=== PATIENT | female | born 1975 | race Caucasian/White ===

== ENCOUNTER 2016-12-27 06:36 | Day surgery (SDC) | payer OTHER ==
[2016-12-21 09:40] VITALS: BMI 25.8
[2016-12-27] MEDS ORDERED: Bupivacaine HCl 0.25% PF (10 ml) Inj ONE ×2 (07:44)
[2016-12-27] MEDS ORDERED: Vasopressin 20 Units/ml Inj ONE (07:45)
[2016-12-27] MEDS ORDERED: ceFAZolin IV 2 gm in Dextrose 1 GM/50 ML BAG IVPB ONE (07:45)
[2016-12-27] MEDS ORDERED: Sodium Chloride 0.9% 0 ML IV ONE (07:45)
[2016-12-27] MEDS ORDERED: Bupivacaine-Epi 0.25%-1:200,000 PF Inj ONE (07:48)
[2016-12-27] MEDS ORDERED: Propofol 10 mg/ml Inj (20 ML) ONE (07:56)
[2016-12-27] MEDS ORDERED: Rocuronium 10 mg/ml (5 ml) ONE (07:57)
[2016-12-27] MEDS ORDERED: Midazolam 2 MG/2 ML VIAL ONE (08:05)
[2016-12-27] MEDS ORDERED: Phenylephrine 10 mg/ml Inj ONE (08:24)
[2016-12-27] MEDS ORDERED: Lactated Ringer's 1,000 ML IV ONE ×4 (08:38→11:00)
[2016-12-27] MEDS ORDERED: Methylene Blue 10 mg/mL(10ml) IV ONE (09:17)
[2016-12-27] MEDS ORDERED: Neostigmine Methylsulfate 3mg/3ml Syringe IV ONE (09:36)
--- NOTE | 2016-12-27 12:26 | PCM.SURG1 ---
Surgeon's Initial Post Op Note - Surgeon's Notes Surgeon: mitchell gill md Last Sawyer: Luis Carlos Cabrales MD, PGY1 Type of Anesthesia: General Endo, Local Pre-Operative Diagnosis: Fibroid uterus. Abnormal uterine bleeding. Chronic anemia. Chronic pelvic pain Operative Findings: extensive intrapelvic adhesions bowel adhesions to posterior uterine wall. deep tissue endometriosis on left uterosacroligament. enlarged uterus, adenomyosis, ill defined myomas and typical myomas. normal bladder anatomy as per cystosopcy at the end of the procedure Post-Operative Diagnosis: Fibroid uterus. Abnormal uterine bleeding. Chronic anemia. Chronic pelvic pain. adenomysis. severe bowel adhesions. deep tissue endometriosis Operation Performed: robotic myomectomy >5. robotic excision of adenomyosis. enterolysis. cystoscopy Specimen/Specimens Removed: myomas. adenomyosis Estimated Blood Loss: EBL {In ML}: 20 Blood Products Given: N/A Drains Used: No Drains Post-Op Condition: Good Date of Surgery/Procedure: 12/27/16 Time of Surgery/Procedure: 12:26
[2016-12-27] MEDS ORDERED: Trimethobenzamide 200 mg/2 mL Inj IM PRN (12:28)
[2016-12-27] MEDS ORDERED: ceFAZolin IV 1 gm in Dextrose 1 GM/50 ML BAG IVPB SCH (12:30)
--- NOTE | 2016-12-27 12:35 | PCM.OP ---
Operative Report - Operative Report Date of Surgery/Procedure: 12/27/16 Time of Surgery/Procedure: 12:34 Surgeon: mitchell gill md Anesthesia/Sedation: Gen. anesthesia per ET tube Pre-Operative Diagnosis: Fibroid uterus. Endometriosis. Abnormal uterine bleeding. Chronic pelvic pain. Chronic anemia Post-Operative Diagnosis: Fibroid uterus. Endometriosis. Adenomyosis. Abnormal uterine bleeding. Chronic pelvic pain. Chronic anemia Indication for Surgery: This is a 41 years old female with chronic pelvic pain worsening abnormal uterine bleeding due to fibroid uterus who failed conservative management over several years. Operative Findings: Patient with bulky enlarged uterus consistent with fibroids as well as adenomyosis. Extensive intrapelvic adhesions involving multiple loops of bowel to the posterior uterine wall. Deep tissue endometriosis on the left uterosacral ligament. Uterus is severely enlarged with ill-defined myomas in typical adenomyosis appearance. Normal bladder anatomy as per cystoscopy again of the procedure. Procedure/Operation Description: Robotic-assisted myomectomy more than 5 myomas, . Robiotic excision of endometriosis as well as adenomyosis. Extensive anterolysis,. Diagnostic cystoscopy. . Detailed Operative Report. This is a 41 years old female with abnormal uterine bleeding, chronic pelvic pain, uterine fibroids. The patient completed an extensive preoperative workup, which included an ultrasound, as well as a Pap smear and chemistry and hematology studies. A decision was finally made to proceed with a robotic assisted myomectomy. A detailed description of this robotic procedure was given to the patient, all risks and benefits of the surgical modality was reviewed, printed material was also given to the patient regarding robotic surgery. The patient fully understood all the risks and benefits and elected to proceed with this proposed procedure. After proper consent was obtained from the patient was taken to the operating room, proper patient identification was completed. She was placed in dorsal lithotomy position; general anesthesia was induced without difficulty. Her legs were placed in adjustable Darin stirrups. Careful attention was placed not to over-flex or over-rotate the lower extremities at the hip or the knee joints. She was prepped and draped appropriately for robotic assisted hysterectomy. Montaño catheter was inserted under sterile conditions. A weighted speculum was placed in the vagina, anterior lip of cervix was grasped with a tenaculum, and a Revolve.-care uterine manipulator was inserted through the cervix and secured. A weighted speculum and tenaculum were removed from the patient's vagina and attention was turned to the patient's abdomen. Local anesthetic solutions of 0.25% Marcaine with epinephrine were utilized to infiltrate the skin prior to all abdominal skin incisions. A total of 15 mL of 0.25% Marcaine was utilized throughout the procedure. While tenting the abdominal wall, a Veres needle was inserted through the umbilicus and a pneumoperitoneum was obtained. Approximately 1 cm above the umbilicus in the midline, a 1 cm incision was made with a scalpel and a trocar and sleeve were introduced. A robotic camera was inserted and an initial survey of the patient's abdomen revealed a bulky enlarged fibroid uterus with possible adenomyosis with multiple myoma originating in anterior posterior and fundal region of the uterus. Patient, extensive intra-abdominal and intrapelvic adhesions were noted, involving multiple loops of bowel as well as the pelvic viscera. Lastly deep tissue endometriosis was noted in the posterior cul-de-sac specifically over the left uterosacral ligament. Both ovaries appeared normal with normal fallopian tubes, however extensive adhesions involving both fallopian tubes and ovaries as well as bowel and omentum. The patient was placed in Trendelenburg position ready for a da Glenn robotic system to be docked. 3 robotic ports were utilized for this procedure. The first robotic port was placed on the patient's right side approximately 5 cm above the right superior iliac crest where a small skin incision approximately 8 mm was made. The second robotic port was in the patient's left side approximately 5 cm superior to the left superior iliac crest. A small incision approximately 1 cm was made 9 cm lateral to the camera port and an assistant child care teacher port was inserted. All robotic ports were approximately 8 mm in size , the assistant child care teacher and the camera ports were 1 cm in size. For the assistant child care teacher and camera ports we utilized the Versa-step trocar system. All trocars were inserted under direct visualization. The placement of the trocars was all accomplished under careful and meticulous placement under direct visualization. Following the placement of all trocars, the da Glenn robotic system was docked in a parallel method without difficulty. The following instruments were utilized for this procedure: the PK sealing device, a monopolar lilian and finally a ProGrasp. Prior to the start of the myomectomy, both ureters and their courses were visualized, peristalsing without difficulty. Prior to initiation of the myomectomy, extensive lysis of adhesions as well as anterolysis was necessary in order to proceed with a myomectomy. Patient had extensive adhesions possibly from prior infection possibly PID in the past. This was a difficult adhesive disease throughout the pelvic cavity. In addition excision of deep tissue endometriosis was completed utilizing a monopolar lilian from the left uterosacral ligament. Ablation of scattered endometriosis was accomplished utilizing the monopolar lilian. The biopsy from the left uterosacral ligament was sent to pathology. Excellent hemostasis noted. Dilute pitrecin solution was used to inject the capsule of all myomas and incision to aid in hemostasis. a total of 40 unites diluted in saline was used to inject with a spinal needle. Multiple incisions over the anterior and posterior uterine wall as well over the uterine fundus were made and the myomas were enucleated using sharp and blunt dissection. A total of > 5 myomas were enucleated this fashion and placed in the posterior cul-de-sac for later extraction. The incisions were closed in an interrupted fashion using 2-0 and 3-0 sutures V lock with great hemostasis. The serosa was closed in baseball fashion with great hemostasis. This was an exceptionally difficult and challenging procedure due to the ill-defined myomas throughout the uterine wall , anterior posterior and fundal region. This was a case of adenomyosis as well as fibroids which made the dissection of the myomas exceptionally difficult. Wedge resection of adenomyosis was completed along with a myomectomy. The endometrial cavity was not entered. Extraction of the myomas which were placed in the posterior cul-de-sac was accomplished utilizing extraction via D assistant child care teacher port all specimen were extracted and sent to pathology labeled appropriately. The abdomen was throughout irrigated and cleared of all clots and debris. FloSeal as well as Intercede was applied to the incision sites. Excellent hemostasis was again noted. All robotic and laparoscopic instruments removed under direct visualization. The robotic arms were undocked, and a StudioNow robotic system was wheeled away from the patient's bedside. Both assistant child care teacher and camera ports were closed at the fascial layer utilizing a 2-0 Vicryl suture serial in interrupted fashion. Pneumoperitoneum was reduced and all skin incisions were closed utilizing 4-0 Monocryl in a subcutaneous fashion. Dermabond was applied to all incisions. Due to the complexity of this myomectomy, the distorted pelvic anatomy, a diagnostic cystoscopy was completed. The Montaño catheter was removed; the bladder was distended with approximately 350 cc of normal saline. A 30 cystoscope was introduced and a survey of the bladder anatomy was completed. The base, and the dome of the bladder appeared normal, both ureteral orifices appeared normal and were efluxing urine freely. The urethra appeared normal. A Montaño catheter was reinserted. Patient emerged from general anesthesia without difficulty, and was taken to recovery room in stable condition. Prior to incision the patient received antibiotics, prior to closure sponge lap and needle counts were correct x2. Estimated Blood Loss: 20 mL Blood Replaced: None Sponge/Instrument Count: Sponge lap and needle count were correct 2. Drains: None Complications: None Specimen: Myomas, adenomyosis, endometriosis. Discharge & Condition: Patient discharged home in stable condition postoperative day #1
[2016-12-27] MEDS: HYDROmorphone 0.5 mg/0.5 ml ISec IVP PRN ×3 (12:40→13:35)
[2016-12-27] MEDS ORDERED: HYDROmorphone 0.5 mg/0.5 ml ISec ONE (12:58)
[2016-12-27] MEDS ORDERED: Clindamycin 2% Vaginal Cream(40 gm) ONE (13:02)
[2016-12-27] MEDS ORDERED: Sodium Chloride 0.9% 1,000 ML IV ONE (13:42)
[2016-12-27] MEDS: Morphine 4 MG/ML VIAL IVP PRN ×2 (15:17→20:07)
[2016-12-27 16:30] VITALS: RESP 20
[2016-12-27] MEDS: ceFAZolin IV 1 gm in Dextrose 1 GM/50 ML BAG IVPB SCH (16:31)
[2016-12-27] MEDS: Sodium Chloride 0.9% 1,000 ML IV SCH (20:02)
[2016-12-28] MEDS: Morphine 4 MG/ML VIAL IVP PRN ×2 (00:17→04:08)
[2016-12-28] MEDS: ceFAZolin IV 1 gm in Dextrose 1 GM/50 ML BAG IVPB SCH ×2 (00:18→07:55)
[2016-12-28] MEDS: Sodium Chloride 0.9% 1,000 ML IV SCH (07:56)
[2016-12-28 08:22] LABS: HEMATOCRIT 28.9 % (34.0-47.0); MEAN CORPUSCULAR HEMOGLOBIN 25.7 pg (27.0-31.0); MEAN CORPUSCULAR HGB CONC 32.5 g/dL (33.0-37.0); MEAN PLATELET VOLUME 8.6 fL (7.2-11.7); RED CELL DISTRIBUTION WIDTH 15.8 % (11.5-14.5); WHITE BLOOD COUNT 9.9 K/uL (4.8-10.8)
[2016-12-28 08:37] LABS: MEAN CELL VOLUME 79.2 fL (81.0-99.0)
[2016-12-28 08:44] LABS: CHLORIDE 102 mmol/L (98-107); POTASSIUM 3.3 mmol/L (3.6-5.2); SODIUM 136 mmol/L (132-148)
[2016-12-28 08:46] LABS: GFR AFRICAN-AMERICAN > 60
[2016-12-28 08:47] LABS: BLOOD UREA NITROGEN 8 mg/dL (7-17); CALCIUM 7.8 mg/dl (8.6-10.4); CARBON DIOXIDE 25 mmol/L (22-30); GLUCOSE,RANDOM 112 mg/dL (65-105)
[2016-12-28] MEDS: Oxycodone/Acetaminophen 5/325 mg Tab PO PRN ×2 (09:46→15:04)
--- NOTE | 2016-12-28 13:10 | CP.PCM.PN ---
Subjective - Date & Time of Evaluation Date of Evaluation: 12/28/16 Time of Evaluation: 13:07 - Subjective Subjective: Patient states abd pain is well controlled with medication. She has been out of bed. No nausea/vomiting. Some vaginal clots noted. Has been drinking, little appetite. Patient has voided. Objective - Vital Signs/Intake and Output Vital Signs (last 24 hours): Temp Pulse Resp BP Pulse Ox 99.4 F 106 H 20 119/71 97 12/28/16 00:00 12/28/16 00:00 12/28/16 00:00 12/28/16 00:00 12/28/16 00:00 Intake and Output: 12/28/16 12/28/16 06:59 18:59 Intake Total 100 1200 Output Total 1400 Balance 100 -200 - Medications Medications: Current Medications Acetaminophen (Tylenol 325mg Tab) 650 mg PO Q6 PRN PRN Reason: Temperature Sodium Chloride (Sodium Chloride 0.9%) 1,000 mls @ 100 mls/hr IV .Q10H [facility] Last Admin: 12/28/16 07:56 Dose: 100 mls/hr Ibuprofen (Motrin Tab) 600 mg PO TID [facility] Last Admin: 12/28/16 09:56 Dose: Not Given Morphine Sulfate (Morphine) 4 mg IVP Q4H PRN PRN Reason: Pain, severe (8-10) Last Admin: 12/28/16 04:08 Dose: 4 mg Oxycodone/Acetaminophen (Percocet 5/325 Mg Tab) 1 tab PO Q4 PRN PRN Reason: Pain, moderate (4-7) Stop: 12/30/16 12:29 Last Admin: 12/28/16 09:46 Dose: 1 tab Potassium Chloride (K-Dur 20 Meq Er Tab) 20 meq PO ONCE ONE Stop: 12/28/16 13:16 Trimethobenzamide HCl (Tigan) 200 mg IM Q6 PRN PRN Reason: Nausea/Vomiting Last Admin: 12/27/16 15:16 Dose: 200 mg - Labs Labs: 12/28/16 08:09 12/28/16 08:09 - Constitutional Appears: Well, No Acute Distress - Respiratory Exam Respiratory Exam: NORMAL BREATHING PATTERN - GI/Abdominal Exam GI & Abdominal Exam: Tenderness, Normal Bowel Sounds Additional comments: mildly distended as aspected generalized tenderness incisions intact, dry, dermabond in place calves soft NT neg homans, patient has been OOB Assessment and Plan (1) Fibroid Assessment & Plan: POD#1 s/p robotic myomectomy, robotic excision of adenomyosis, enterolysis, cystoscopy -labs reviewed, h/h stable, k replaced -encourage IS/OOB -advance diet as tolerated -d/c home today as per Dr. Mullins -f/u 1-2 weeks, call office for appointment -rx for percocet #[address] Mullins -[place] [facility] patient report reviewed, no CDS rx in last year. Patient counseled on the risks of addiction, physical or psychological dependence, and overdose associated with opioid drugs and the danger of taking opioid drugs with alcohol and other central nervous system depressants, and cautioned patient on storage and disposal. -d/w Dr. Mullins, agrees with above Status: Chronic (2) Endometriosis Status: Chronic (3) Adenomyosis Status: Chronic (4) Abnormal uterine bleeding Status: Chronic (5) Anemia Status: Chronic
[2016-12-28] MEDS ORDERED: Potassium Chloride 20 mEq ER Tab PO ONE (13:15)
[2016-12-28 16:47] VITALS: BP 114/69; PULSE 100; TEMP 98.8; O2SAT 99
== END 2016-12-28 19:20 | disposition home or self-care (01) ==
LOC: C.SDS 06:36 → C.9S 12:28 → UNDOADMIN 12:28 → C.9S 13:06 → C.4M 13:06 → C.SDS 12-28 19:20 → UNDODISIN 12-28 19:20
PROVIDERS: ATTEND Obstetrics & Gynecology
PROC: 0UB94ZZ Excision of Uterus, Percutaneous Endoscopic Approach (ICD-10-PCS; 2016-12-27)
PROC: 0DNW4ZZ Release Peritoneum, Percutaneous Endoscopic Approach (ICD-10-PCS; 2016-12-27)
PROC: 0UN94ZZ Release Uterus, Percutaneous Endoscopic Approach (ICD-10-PCS; 2016-12-27)
PROC: 8E0W4CZ Robotic Assisted Procedure of Trunk Region, Percutaneous Endoscopic Approach (ICD-10-PCS; 2016-12-27)
PROC: 0UB94ZZ Excision of Uterus, Percutaneous Endoscopic Approach (ICD-10-PCS; principal; 2016-12-27 08:38)
DX: D25.9 Leiomyoma of uterus, unspecified (principal); D64.9 Anemia, unspecified; N80.0 Endometriosis of uterus; N93.9 Abnormal uterine and vaginal bleeding, unspecified; N80.9 Endometriosis, unspecified; N73.6 Female pelvic peritoneal adhesions (postinfective)